=== PATIENT | female | born 1945 | race Caucasian/White ===

== ENCOUNTER 2023-10-17 19:55 | Emergency (ER) | payer MEDICARE, OTHER, SELFPAY ==
[2023-10-17 19:57] VITALS: BP 168/80
--- NOTE | 2023-10-18 | ED.GENMED ---
History of Present Illness
General
Chief Complaint: Skin Problem
Source: patient
Exam Limitations: none
Time Seen by Provider: 10/17/23 21:39
Travel History
Have you had any contact with someone who has COVID-19?: No
Do you have any symptoms of coronavirus? Fever > 100 degrees, chills, cough, shortness of breath, sore throat, loss of taste or smell, muscle aches, or headache?: No
History of Present Illness
History of Present Illness:
Patient presents from local [facility] for evaluation of bilateral leg wounds. The patient states she has been scratching them. She presents with dressings intact. No fevers reported. Patient offers no current complaints
Past History
Past History
ED Past Medical History: HTN, Hypercholesterolemia and Other (RA)
ED Past Surgical History: Appendectomy and Tonsilectomy
Social History
Tobacco: Former smoker
Alcohol: None
Personal:
Living: skilled nursing
Phy Exam
Physical Exam
Physical Exam:
CONSTITUTIONAL Vital signs reviewed, Patient alert and oriented to person, place and time. Well-appearing
HEAD atraumatic, normocephalic.
EYES eyelids normal to inspection, Extraocular muscles intact, Conjunctiva normal, Sclera normal.
NECK normal range of motion, Trachea midline, no jugular venous distention.
RESP no respiratory distress
BACK No obvious deformities
UPPER EXTREMITY Gross Range of motion normal, gross motor strength normal
LOWER EXTREMITY Gross range of motion normal, Gross motor strength normal. Dry dressings were intact on initial evaluation. The patient unfortunately had a dry dressing overlying excoriated skin and the dressing had adhered significantly to her
skin. It was removed by the RN with saline. Underlying the dressing is excoriated skin in the lower one third of bilateral lower extremities. There is no surrounding cellulitis. There is no drainage. She has normal perfusion distal to this.
NEURO Speech normal, No focal motor deficits include, Sonya coma scale 15, Cranial Nerves intact to screening exam.
SKIN Skin warm, dry, and normal in color.
Course
Vital Signs
Initial and Last Documented VS:
Initial Vital Signs
Temp Pulse Resp BP Pulse Ox
97.5 F 75 16 168/80 99
10/17/23 19:57 10/17/23 19:57 10/17/23 19:57 10/17/23 19:57 10/17/23 19:57
Last Documented Vital Signs
Temp Pulse Resp BP Pulse Ox
97.5 F 75 16 168/80 99
10/17/23 19:57 10/17/23 19:57 10/17/23 19:57 10/17/23 19:57 10/17/23 19:57
MDM/Problems Addressed
MDM/Problems Addressed:
Suspected chronic venous stasis changes, open lower extremity wounds
*Pulse Oximetry
Patient hypoxic: no
*Critical Care Note
Total Time (30-74mins, 75-104mins- exclusive of procedures): Not Applicable
Data Reviewed
Source: patient
Further Testing Considered But Not Given:
Consider labs but no signs of overt cellulitis
Patient Management
Escalation/DeEscalation of care consider admission/obs:
Proper dressings were now applied. I advised wound care follow-up. We will cover with antibiotics but do not suspect overwhelming cellulitis. Okay for discharge and outpatient wound care follow-up
ED Attending Note
-
Portions of this chart may have been created with voice recognition software.� Occasional wrong word or��sound alike� substitutions may have occurred due to the inherent limitations of voice recognition software.
Discharge Plan
Departure
Patient Disposition: Home (Routine Discharge)
Date of Disposition: 10/18/23
Time of Disposition: 00:01
Patient with high blood pressure during this ER visit?: Yes
Discharge Problem:
Chronic lower extremity wounds
Instructions: [facility]
Prescriptions:
New
cephalexin 500 mg capsule
500 mg PO Q8H 7 Days Qty: 21 0RF
No Action
Eliquis 5 mg Tablet
5 mg PO BID Qty: 1 0RF
ferrous sulfate 325 mg (65 mg iron) tablet
325 mg PO DAILY Qty: 1 0RF
sertraline 25 mg Tablet
25 mg PO HS
acetaminophen 650 mg Tablet Extended Release
650 mg PO Q8HPRN PRN (Reason: back pain)
Sarna Original 0.5-0.5 % Lotion
1 applic TOPICAL BID PRN (Reason: abdomen,back and arms)
Critic-Aid 20-51 % Paste
1 applic TOPICAL BID
Rx Instructions:
Thin layer to nose
dextromethorphan polistirex [Delsym 12 hour] 30 mg/5 mL Suspension,Extended Rel 12 Hr
10 ml PO [id number] PRN (Reason: cough)
Therapeutic Moisturizing Cream
1 applic TOPICAL BID
Rx Instructions:
bilateral legs
acetaminophen 650 mg Tablet Extended Release
650 mg PO Q8H
tramadol 50 mg tablet
50 mg PO Q6HPRN PRN (Reason: mod/sev pain)
furosemide 40 mg Tablet
40 mg PO DAILY Qty: 1 0RF
metoprolol succinate 50 mg Tablet Extended Release 24 Hr
50 mg PO BID Qty: 1 0RF
dextromethorphan-guaifenesin 10-100 mg/5 mL Syrup
10 ml PO Q6HPRN PRN (Reason: COUGH) Qty: 1 0RF
docusate sodium [Colace] 100 mg capsule
100 mg PO DAILY Qty: 1 0RF
polyethylene glycol 3350 [Miralax] 17 gram powder in packet
17 g PO DAILY PRN (Reason: Constipation) Qty: 1 0RF
fluticasone propion-salmeterol 115-21 mcg/actuation Hfa Aerosol Inhaler
2 puff inhalation R BID Qty: 12 0RF
albuterol sulfate 2.5 mg /3 mL (0.083 %) Solution For Nebulization
2.5 mg inhalation R Q4HPRN PRN (Reason: SOB, COUGH, WHEEZE) Qty: 1 0RF
Referrals:
UNKNOWN - PT DOES,NOT KNOW [Family Provider] -
Activity Restrictions/Additional Instructions:
DO NOT PLACE DRY DRESSINGS ON KELLIE'S WOUNDS.
Please be sure to use Vaseline gauze or other nonadherent dressings and change them once a day. Please be sure to follow-up with wound care in the next 3 to 5 days. Return for fevers, increased redness of the leg or any other concerns.
Interventions
Interventions:
*Risk Screen - Suicide Last Done: 10/17/23 19:57
*General Assessment Last Done: 10/17/23 22:25
*Neglect/Abuse Screening Last Done: 10/17/23 19:57
*ED COVID-19 Vaccine History Last Done: 10/17/23 19:57
ED-Skin Assessment Last Done: 10/17/23 23:20
[2023-10-18 00:25] VITALS: BP 152/75
== END 2023-10-18 00:59 | disposition home or self-care (01) ==
LOC: EMR 19:55
PROVIDERS: EMERGENCY PHYSICIAN Emergency Medicine
DX: S81.802A Unspecified open wound, left lower leg, initial encounter (principal); S81.801A Unspecified open wound, right lower leg, initial encounter; X58.XXXA Exposure to other specified factors, initial encounter; E78.00 Pure hypercholesterolemia, unspecified; I10 Essential (primary) hypertension; Z87.891 Personal history of nicotine dependence; Z90.49 Acquired absence of other specified parts of digestive tract
CPT/HCPCS: 99282

== ENCOUNTER 2023-10-22 19:23 | Emergency (ER) | payer MEDICARE, OTHER, SELFPAY ==
[2023-10-22 19:31] VITALS: BP 159/80
--- NOTE | 2023-10-22 20:38 | ED.GENMED ---
History of Present Illness
General
Chief Complaint: Skin Problem
Source: patient
Exam Limitations: none
Time Seen by Provider: 10/22/23 20:06
Travel History
Have you had any contact with someone who has COVID-19?: No
Do you have any symptoms of coronavirus? Fever > 100 degrees, chills, cough, shortness of breath, sore throat, loss of taste or smell, muscle aches, or headache?: No
History of Present Illness
History of Present Illness:
78-year-old female sent for bilateral redness and swelling to both lower extremities. This apparently has been an ongoing issue. She apparently scratches these areas frequently. No fever chills or other complaints
Past History
Past History
ED Past Medical History: HTN, Hypercholesterolemia and Other (RA)
ED Past Surgical History: Appendectomy and Tonsilectomy
Social History
Tobacco: Former smoker
Alcohol: None
Personal:
Living: assisted
Review of Systems
Review of Systems
All Other Systems: Not applicable
Constitutional: Denies fever or chills
Respiratory: Reports no symptoms
Cardiac: Reports no symptoms
Phy Exam
Physical Exam
Physical Exam:
GENERAL: Alert and oriented in no apparent distress. Elderly and frail
EYE: Orbits normal.
NECK: Supple
CARDIAC: Regular rate and rhythm without any obvious murmurs.
LUNGS: Clear breath sounds,normal
ABDOMEN: Soft, without focal tenderness or distention
NEUROLOGICAL: Alert and oriented , grossly non-focal
SKIN: Warm and dry, diffuse erythema to both lower extremities below the knee. Somewhat chronic appearing. Minimal warmth. No cord. Mild swelling but symmetrical
MUSCULOSKELETAL: Good distal close and color
PSYCH: Normal and appropriate interaction.
Course
Orders/Labs/Results
Orders:
Orders
10/22/23 20:41
Basic Metabolic Panel Urgent
Complete Blood Count/With Diff Urgent
10/22/23 21:08
Doxycycline [Vibramycin] 100 mg PO NOW STA
Abnormal Lab Results
10/22/23
20:41
RBC 3.98 L 10^6/uL
(4.20-5.40)
Hgb 11.0 L g/dL
(12.0-16.0)
Hct 34.3 L %
(37.0-47.0)
MCHC 32.1 L g/dL
(33.0-37.0)
RDW 15.2 H %
(11.5-14.5)
Plt Count 414 H 10^3/uL
(130-400)
Absolute Neuts (auto) 7.6 H 10^3/uL
(1.4-6.5)
Absolute Monos (auto) 0.8 H 10^3/uL
(0.1-0.6)
Absolute Eos (auto) 0.8 H 10^3/uL
(0-0.7)
Lymphocytes % 13.4 L %
(20.5-51.1)
Eosinophils % 7.4 H %
(0-6)
Sodium 130 L mmol/L
(135-145)
BUN 24 H mg/dl
(7-17)
Glucose 112 H mg/dl
(70-99)
10/22/23 20:41
10/22/23 20:41
Vital Signs
Initial and Last Documented VS:
Initial Vital Signs
Temp Pulse Resp BP Pulse Ox
97.6 F 71 16 159/80 97
10/22/23 19:31 10/22/23 19:31 10/22/23 19:31 10/22/23 19:31 10/22/23 19:31
Last Documented Vital Signs
Temp Pulse Resp BP Pulse Ox
97.6 F 71 16 158/94 97
10/22/23 19:31 10/22/23 19:31 10/22/23 19:31 10/22/23 21:38 10/22/23 19:31
MDM/Problems Addressed
Differential Diagnosis Includes:
Medically this appears to be a bilateral dermatitis. Cannot totally rule out a cellulitic component. Highly doubt DVT. Patient is not toxically ill or systemically ill. Labs are reasonably stable will cover with doxycycline to follow-up
*Critical Care Note
Total Time (30-74mins, 75-104mins- exclusive of procedures): Not Applicable
Data Reviewed
Review of Other/Old Records Reveals: Labs and Records
Update Note
Update Note:
Patient stable and nontoxic. Somewhat of a stasis dermatitis. However will cover with antibiotics and steroid cream to follow-up.
ED Attending Note
-
Portions of this chart may have been created with voice recognition software.� Occasional wrong word or��sound alike� substitutions may have occurred due to the inherent limitations of voice recognition software.
Discharge Plan
Departure
Patient Disposition: Home (Routine Discharge)
Date of Disposition: 10/22/23
Time of Disposition: 21:09
Patient with high blood pressure during this ER visit?: Yes
Discharge Problem:
Bilateral lower extremity dermatitis, Mild stable hyponatremia
Instructions: Skin Rash (DC), Hyponatremia (DC), BLOOD PRESSURE
Prescriptions:
New
doxycycline hyclate 100 mg capsule
100 mg PO BID 10 Days Qty: 20 0RF
triamcinolone acetonide 0.1 % cream
1 applic topical BID Qty: 453.6 0RF
No Action
Eliquis 5 mg Tablet
5 mg PO BID Qty: 1 0RF
ferrous sulfate 325 mg (65 mg iron) tablet
325 mg PO DAILY Qty: 1 0RF
sertraline 25 mg Tablet
25 mg PO HS
acetaminophen 650 mg Tablet Extended Release
650 mg PO Q8HPRN PRN (Reason: back pain)
Sarna Original 0.5-0.5 % Lotion
1 applic TOPICAL BID PRN (Reason: abdomen,back and arms)
Critic-Aid 20-51 % Paste
1 applic TOPICAL BID
Rx Instructions:
Thin layer to nose
dextromethorphan polistirex [Delsym 12 hour] 30 mg/5 mL Suspension,Extended Rel 12 Hr
10 ml PO [id number] PRN (Reason: cough)
Therapeutic Moisturizing Cream
1 applic TOPICAL BID
Rx Instructions:
bilateral legs
acetaminophen 650 mg Tablet Extended Release
650 mg PO Q8H
tramadol 50 mg tablet
50 mg PO Q6HPRN PRN (Reason: mod/sev pain)
furosemide 40 mg Tablet
40 mg PO DAILY Qty: 1 0RF
metoprolol succinate 50 mg Tablet Extended Release 24 Hr
50 mg PO BID Qty: 1 0RF
dextromethorphan-guaifenesin 10-100 mg/5 mL Syrup
10 ml PO Q6HPRN PRN (Reason: COUGH) Qty: 1 0RF
docusate sodium [Colace] 100 mg capsule
100 mg PO DAILY Qty: 1 0RF
polyethylene glycol 3350 [Miralax] 17 gram powder in packet
17 g PO DAILY PRN (Reason: Constipation) Qty: 1 0RF
fluticasone propion-salmeterol 115-21 mcg/actuation Hfa Aerosol Inhaler
2 puff inhalation R BID Qty: 12 0RF
albuterol sulfate 2.5 mg /3 mL (0.083 %) Solution For Nebulization
2.5 mg inhalation R Q4HPRN PRN (Reason: SOB, COUGH, WHEEZE) Qty: 1 0RF
cephalexin 500 mg capsule
500 mg PO Q8H 7 Days Qty: 21 0RF
Referrals:
UNKNOWN - PT DOES,NOT KNOW [Family Provider] -
Activity Restrictions/Additional Instructions:
Antibiotics as directed. Cream as directed
Follow-up closely with her primary physician in the next 2 to 3 days
Return sooner with increased redness increased swelling fever or any other concerning symptoms
Interventions
Interventions:
*Risk Screen - Suicide Last Done: 10/22/23 19:31
*General Assessment Last Done: 10/22/23 19:31
*Neglect/Abuse Screening Last Done: 10/22/23 19:31
*ED COVID-19 Vaccine History Last Done: 10/22/23 19:31
[2023-10-22 20:49] LABS: % Basophils 0.6 % (0-2); % Eosinophils 7.4 % (0-6); % Immature Granulocytes 0.3 % (0-0.5); % Lymphocytes 13.4 % (20.5-51.1); % Monocytes 7.8 % (1.7-9.3); % Neutrophils 70.5 % (42.2-75.2); Absolute Basophils 0.1 10^3/uL (0-0.2); Absolute Eosinophils 0.8 10^3/uL (0-0.7); Absolute Lymphocytes 1.5 10^3/uL (1.2-3.4); Absolute Monocytes 0.8 10^3/uL (0.1-0.6); Absolute Neutrophils 7.6 10^3/uL (1.4-6.5); Hematocrit 34.3 % (37.0-47.0); Mean Corp Hgb Conc. 32.1 g/dL (33.0-37.0); Mean Corpuscular Hgb 27.6 pg (27.0-31.0); Mean Corpuscular Volume 86.2 fL (81.0-99.0); Mean Platelet Volume 8.7 fL (7.4-10.4); Nucleated Red Blood Cells % 0 %; Platelet Count 414 10^3/uL (130-400); Red Blood Cell Count 3.98 10^6/uL (4.20-5.40); Red Cell Dist. Width 15.2 % (11.5-14.5); White Blood Cell Count 10.8 10^3/uL (4.8-10.8)
[2023-10-22 21:01] LABS: Blood Urea Nitrogen 24 mg/dl (7-17); Calcium 9.1 mg/dl (8.4-10.2); Carbon Dioxide 24 mmol/L (22-30); Chloride 99 mmol/L (98-107); Glucose 112 mg/dl (70-99); Potassium 5.1 mmol/L (3.5-5.1); Sodium 130 mmol/L (135-145); eGFR > 60.00
[2023-10-22] MEDS: VIBRAMYCIN 100 MG PO (21:20)
[2023-10-22 22:17] VITALS: BP 157/85
[2023-10-22 23:30] VITALS: BP 165/92
== END 2023-10-23 01:30 | disposition home or self-care (01) ==
LOC: EMR 19:23
PROVIDERS: EMERGENCY PHYSICIAN Emergency Medicine
DX: L30.9 Dermatitis, unspecified (principal); E87.1 Hypo-osmolality and hyponatremia; I10 Essential (primary) hypertension; Z87.891 Personal history of nicotine dependence
CPT/HCPCS: 99283; 80048; 85025